=== PATIENT | female | born 1960 | race Caucasian/White ===

== ENCOUNTER 2021-02-10 12:32 | Emergency (ER) | payer BC, SELFPAY ==
--- NOTE | ~2021-02-10 | XR_ITS ---
EXAMINATION: XR chest 1V portable DATE: 02/10/2021 15:08 INDICATION: Right-sided jaw pain, worsening seizures. Fall. TECHNIQUE: frontal view of the chest was obtained. COMPARISON: None FINDINGS: The lungs are clear with no focal airspace opacities, pulmonary edema, pleural effusion or pneumothor ax. The cardiomediastinal silhouette is normal. Unilateral distal left clavicular bone loss with tape red contour which could represent sequela of prior trauma or surgery. IMPRESSION: 1. No acute cardiopulmonary disease. Reviewed, dictated and finalized at location [facility]
[2021-02-10 12:35] VITALS: BP 133/91; PULSE 72; RESP 16; TEMP 36.8; O2SAT 100
[2021-02-10 14:36] VITALS: BP 150/84; PULSE 78; RESP 16; TEMP 36.8; O2SAT 100
[2021-02-10 15:45] VITALS: BP 135/69; PULSE 78; RESP 15; TEMP 36.9; O2SAT 100
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
== END 2021-02-10 15:45 | disposition home or self-care (01) ==
PROVIDERS: Emergency Provider Emergency Medicine
DX: Z04.89 Encounter for examination and observation for other specified reasons (principal)
CPT/HCPCS: 71045; 99283